=== PATIENT | female | born 1965 | race Two or more races ===

== ENCOUNTER 2022-08-18 12:31 | Outpatient (CLI) | payer OTHER | END 2022-08-18 12:36 | disposition home or self-care (01) | LOC: LAB 12:31 | PROVIDERS: ATTEND Internal Medicine | DX: N39.0 Urinary tract infection, site not specified (principal) ==

== ENCOUNTER 2022-08-18 13:00 | Outpatient (CLI) | payer OTHER | END 2022-08-18 13:02 | disposition home or self-care (01) | LOC: SONOGRAMA 13:00 | PROVIDERS: ATTEND Internal Medicine | DX: N20.0 Calculus of kidney (principal) ==

== ENCOUNTER 2022-09-23 14:43 | Outpatient (CLI) | payer OTHER | END 2022-09-23 14:46 | disposition home or self-care (01) | LOC: LAB 14:43 | PROVIDERS: ATTEND Internal Medicine | DX: D65 Disseminated intravascular coagulation [defibrination syndrome] (principal) ==

== ENCOUNTER 2022-09-25 14:45 | Emergency (ER) | payer OTHER ==
[~2022-09-25] VITALS: Ht 152.4 cm; Wt 63.5 kg
[2022-09-25] MEDS ORDERED: SYMBICORT 16010.2 GM IH (15:57)
[2022-09-25] MEDS ORDERED: ZETIA10 MG PO (15:58)
== END 2022-09-25 18:40 | disposition home or self-care (01) ==
LOC: ER 14:45
DX: M25.511 Pain in right shoulder (principal); M25.571 Pain in right ankle and joints of right foot; W18.30XA Fall on same level, unspecified, initial encounter; Y93.9 Activity, unspecified; Y92.413 State road as the place of occurrence of the external cause; Z88.2 Allergy status to sulfonamides; Z88.0 Allergy status to penicillin; M54.9 Dorsalgia, unspecified

== ENCOUNTER 2023-02-25 13:57 | Emergency (ER) | payer OTHER ==
[~2023-02-25] VITALS: Ht 160 cm; Wt 61.2 kg
[~2023-02-25 13:57] MED LIST: SYMBICORT 16010.2 GM IH; ZETIA10 MG PO
[2023-02-25] MEDS ORDERED: PROVENTIL HFA6.7 GM IH (14:40)
== END 2023-02-25 15:36 | disposition home or self-care (01) ==
LOC: ER 13:57
DX: M54.59 Other low back pain (principal); Z88.6 Allergy status to analgesic agent; Z88.8 Allergy status to other drugs, medicaments and biological substances